=== PATIENT | female | born 1950 | race Caucasian/White ===

== ENCOUNTER 2021-12-05 14:00 | Outpatient (RCR) | payer MEDICAID, SELFPAY | END 2022-02-27 15:01 | disposition home or self-care (01) | PROVIDERS: PCP Family Medicine; Visit Provider Family Medicine | DX: M54.2 Cervicalgia (principal); Z51.89 Encounter for other specified aftercare | CPT/HCPCS: 97110; 97140; 97161 ==

== ENCOUNTER 2022-01-28 10:10 | Outpatient (CLI) | payer MEDICAID, SELFPAY | END 2022-01-28 10:11 | disposition home or self-care (01) | LOC: LKVREF 02-02 10:35 | PROVIDERS: PCP Family Medicine; Visit Provider Physician Assistant Medical | DX: N39.0 Urinary tract infection, site not specified (principal); R31.9 Hematuria, unspecified | CPT/HCPCS: 87086 ==

== ENCOUNTER 2022-05-03 11:37 | Day surgery (SDC) | payer MEDICAID, SELFPAY ==
[2022-05-03] VITALS (10 sets, daily range): BP systolic 109–157; BP diastolic 71–88; PULSE 60–92; RESP 16; TEMP 36.2–36.7; O2SAT 99–100; BMI 25.1
[2022-05-03] MEDS: LACTATED RINGERS 1000 ML 1,000 ML 100 ML IV (12:00)
--- NOTE | 2022-05-03 12:09 | W.ANESCHARGE ---
Anesthesia Charges Start Date/Time Anesthesia Start Date: 05/03/22 Anesthesia Start Time: 13:25 Stop Date/Time Anesthesia Stop Date: 05/03/22 Anesthesia Stop Time: 14:24 Summary Emergency: No Extremes of Age: Over 68-CPT [id number]
[2022-05-03] MEDS: SODIUM CHLORIDE 0.9 % (FLUSH) 10 ML SYRINGE IVF (12:22)
[2022-05-03] MEDS: CEFAZOLIN 2 GM INJ IVP (13:35)
[2022-05-03] MEDS: BUPIVACAINE 0.25% 30 ML INJECTION (14:15)
--- NOTE | 2022-05-03 14:22 | W.ANESCHARGE ---
Anesthesia Charges Start Date/Time Anesthesia Start Date: 05/03/22 Anesthesia Start Time: 13:25 Stop Date/Time Anesthesia Stop Date: 05/03/22 Anesthesia Stop Time: 14:24 Summary Emergency: No Extremes of Age: Over 68-CPT [id number]
--- NOTE | 2022-05-03 14:23 | P.ORPRC_ITS ---
Procedure Note Date of procedure: 05/03/22 Procedure: SURGEON: Mik Veronica MD [employer] REPRESENTATIVE: MARSHA Rock PREOPERATIVE DIAGNOSIS: Left knee medial and lateral meniscus tear POSTOPERATIVE DIAGNOSIS: Left knee medial and lateral meniscus tear NAME OF OPERATION: Left knee arthroscopic partial medial and lateral meniscectomy, medial and lateral compartment chondroplasty ANESTHESIA: Spinal ESTIMATED BLOOD LOSS: 0 mL COMPLICATIONS: None SPECIMENS: None DRAINS: None PREOPERATIVE ANTIBIOTICS: Ancef 2 gram INDICATIONS: The patient is a 71-year-old with a history of left knee pain. MRI scan is consistent with tearing of the medial and lateral menisci. Despite appropriate nonoperative management, including activity modification, antiinflammatories, [id number] pain medication, bracing, physical therapy, and injections they continue to have pain and disability. Operative interve ntion was offered. The risks, benefits and expected outcomes were discussed in detail. These included but were not limited to: Infection, bleeding, injury to blood vessel or nerve, venous thromboembolism. All questions were answered to their satisfaction. PROCEDURE: Spinal anesthesia was administered. The patient was placed supine on the operating room table. The left lower extremity was prepped and draped in the usual sterile fashion. The limb was exsanguinated with the Mariano bandage. The pneumatic tourniquet was inflated to 300 mmHg. A standard anterolateral portal was established. The arthroscope was introduced. The working portal was established anteromedially. Diagnostic arthroscopy was performed with findings as follows: The suprapatellar pouch is normal. Articular surface on the patella is normal. Articular surface on the trochlea is normal. The medial gutter is normal. The medial compartment shows diffuse grade 3 change on the medial femoral condyle, grade 2 change on the medial tibial plateau. The medial meniscus has a complex degenerative tear of the posterior horn, into the midbody. This consists of a small radial tear with an unstable flap, tucked under midbody. The notch shows the ACL to be intact. The lateral compartment shows diffuse grade 3 change on the lateral femoral condyle, grade 2 change on the lateral tibial plateau. The lateral meniscus has a radial tear of the posterior horn from the leading edge, to the capsule, detaching it from the tibia (root tear). There is degenerative tearing of the leading edge of the midbody and anterior horn as well. The lateral gutter is normal. The posterior horn and midbody of the medial meniscus was debrided to a stable base using a combination of baskets and shaver through both portals. Likewise, the anterior horn, midbody and posterior horn of the lateral meniscus were debrided with a combination of baskets and Kassidy through both portals. Given the amount of arthritis, we elected not to repair the root tear. Unstable chondral flaps on the medial and lateral femoral condyle were debrided with the shaver through both portals, taken to a stable base. Arthroscopic instruments were removed, the portal sites were Steri-Stripped closed, the knee was infiltrated with 30 mL of 0.25% Marcaine without epinephrine. A dry dressing was applied, the tourniquet was released. Sponge an d needle counts were correct x 2. The patient tolerated the procedure well. There were no apparent complications. They were carefully transferred to the hospital bed and taken to the postanesthesia care unit in satisfactory condition. PLAN: The patient will be discharged to home. They may weightbear as tolerates. Range of motion will be unrestricted. They will follow up in the office next week for a wound check.
== END 2022-05-03 15:57 | disposition home or self-care (01) ==
LOC: OR 11:38
PROVIDERS: PCP Family Medicine; Visit Provider Orthopaedic Surgery
PROC: (CPT 29870; principal; 2022-05-03 13:00)
DX: M23.222 Derangement of posterior horn of medial meniscus due to old tear or injury, left knee (principal); M23.252 Derangement of posterior horn of lateral meniscus due to old tear or injury, left knee; M23.242 Derangement of anterior horn of lateral meniscus due to old tear or injury, left knee
CPT/HCPCS: 29880; 01400; 99100; J0690; J1100; J2250; J2400; J2405; J2704; J3010; J3490; J7120

== ENCOUNTER 2023-02-08 12:35 | Outpatient (CLI) | payer MEDICAID, SELFPAY ==
[2023-02-08 12:51] LABS: WBC Urine 50-100 (0-5)
[2023-02-08 12:52] LABS: Bacteria Urine Many; Squamous Epithelial Cell Urine Few (None-Few); WBC Clumps Urine Few
== END 2023-02-08 12:36 | disposition home or self-care (01) ==
LOC: NFLDUCREF 12:36
PROVIDERS: PCP Family Medicine; Visit Provider Physician Assistant
DX: R30.0 Dysuria (principal)
CPT/HCPCS: 81015; 87086; 87186

== ENCOUNTER 2023-05-16 12:42 | Outpatient (CLI) | payer MEDICARE, SELFPAY | END 2023-05-16 12:43 | disposition home or self-care (01) | LOC: NFLDREF 05-17 11:13 | PROVIDERS: PCP Family Medicine; Referring Provider Family Medicine; Visit Provider Registered Nurse | DX: R30.0 Dysuria (principal); N39.0 Urinary tract infection, site not specified | CPT/HCPCS: 87086 ==

== ENCOUNTER 2023-07-29 06:16 | Day surgery (SDC) | payer MEDICARE, SELFPAY ==
[2023-07-29] VITALS (16 sets, daily range): BP systolic 138–181; BP diastolic 75–103; PULSE 58–80; RESP 16–20; TEMP 36.1–36.9; O2SAT 96–100; BMI 23.8
[2023-07-29] MEDS: SODIUM CHLORIDE 0.9 % (FLUSH) 10 ML SYRINGE IVF (06:45)
[2023-07-29] MEDS: LACTATED RINGERS 1000 ML 1,000 ML 100 ML IV (06:45)
--- NOTE | 2023-07-29 07:17 | W.PM.H&PU ---
History & Physical Update History & Physical Update H&P Reviewed and patient assessed: No changes noted
--- NOTE | 2023-07-29 07:19 | P.GSOP_ITS ---
Operative Note Date of procedure: 07/29/23 Pre-op diagnosis: 1. Symptomatic right inguinal hernia. Post-op diagnosis: 1. Direct right inguinal hernia. Type of Procedure: 1. Open right inguinal hernia repair with mesh. Indications: 72-year-old female was seen in clinic for evaluation of an enlarging right inguinal hernia. Patient had exploratory laparotomy in 2021 for perforated duodenal ulcer. During her workup with abdominal CT a right inguinal hernia containing terminal ileum was seen. There was no evidence of obstruction. Ginger ent noticed a right inguinal bulge in the last couple years. This was more prominent when she was standing and with coughing and sneezing. Patient denied pain at the bulge. On clinical exam patient had a well-healed upper midline laparotomy incision. When the patient was lying down there was asymmetry of soft tissue in the right inguinal canal. This was more prominent with Valsalva and when patient was standing up and doing Valsalva. A right inguinal bulge was palpable. Given patient's clinical history and her physical exam, an open right inguinal hernia repair with mesh was recommended. The procedure was discussed in detail. Risks associated procedure including infection, bleeding, nerve pain, nerve injury, injury to intra-abdominal organs, and hernia recurrence were all discussed with the patient, and she agreed to proceed. Procedure Description: After discussing the risks and benefits of the procedure, the patient signed informed consent.? The operative site was marked and the patient was brought to the operating room and placed on the operating table in supine position.? Care was taken to pad the patient's pressure points.?? The patient was then intubated by anesthesia.?? The operative site was then prepped and draped in the usual sterile fashion.? A time-out was then performed. Surgical site was prepped and draped in sterile fashion. Site of the incision was marked with a marking pen and local anesthetic was injected. An oblique incision was made just above and medial to the right inguinal ligament. Subcutaneous tissue was dissected to external obliques. Superficial subcutaneous vascular branches were clamped, divided and tied with 3-0 Vicryl ties. Small incision was made through the external oblique aponeurosis with scalpel. I then used Metzenbaum scissors to dissect under external obliques and extend my incision. Mosquito clamps were placed on the edges of external oblique exposing the inguinal floor. The right Ilioinguinal nerve was identified and was going through the plain of dissection. The nerve was divided proximally and distally and a 3 cm segment of it was excised. This was not sent to pathology. I then identified the round ligament and the direct hernia sac. Peritoneum at the internal ring was examined and there was no evidence of indirect inguinal hernia. The round ligament and the direct hernia sac were dissected away from each other with cautery and bluntly. The round ligament was then clamped proximally and distally and a segment of round ligament was excised and not sent to pathology. The distal and proximal ends were tied with Vicryl ties. The direct hernia sac was incised with Metzenbaum scissors and examined from the inside. I could see small intestine at the base of the hernia sac but no intraabdominal organs were incarcerated in the hernia sac. A stitch using 2-0 Vicryl was placed near the base of the hernia sac through the sac and the hernia sac tied off. Hernia sac was then excised and not sent to pathology. The cut edge of the hernia sac was then oversewn with a locking Vicryl suture. This was then pushed into preperitoneal space. Surgical field was examined for bleeding and hemostasis was achieved with cautery. Muscle fibers of the inguinal floor were reapproximated with interrupted Vicryl sutures to keep the hernia sac in the preperitoneal space. A Bard mesh onlay was also used for hernia repair. The mesh onlay was sutured in place with interrupted 0-0 Neurolon sutures to the conjoint tendon medially and shelving edge laterally, pubic tubercle inferiorly. External oblique aponeurosis was closed with a running 3-0 Vicryl. Additional local anesthetic was injected into subcutaneous tissues. Callum's fascia and subcutaneous tissue was re- approximated with interrupted Vicryl stitches. Skin incision was closed with 4-0 Monocryl subcuticular stitch. Steri strips and sterile dressing were applied over incision. All counts were correct at the end of the case. Patient tolerated this procedure well and was transferred to PACU in stable condition. Findings: Small direct hernia with no intra-abdominal structures incarcerated in the hernia sac. Repaired with mesh. Anesthesia: GETA Surgeon: Susana Bui MD Estimated blood loss (mL): 5 Condition: stable Disposition: PACU
[2023-07-29] MEDS: CEFAZOLIN 2 GM INJ IVP (07:32)
[2023-07-29] MEDS: BUPIVACAINE 0.25% 30 ML INJECTION (08:10)
--- NOTE | 2023-07-29 08:34 | W.ANESCHARGE ---
Anesthesia Charges Start Date/Time Anesthesia Start Date: 07/29/23 Anesthesia Start Time: 07:20 Stop Date/Time Anesthesia Stop Date: 07/29/23 Anesthesia Stop Time: 08:34
[2023-07-29] MEDS: HYDROCODONE-ACETAMIN 5-325 MG 1 TAB PO (09:48)
== END 2023-07-29 10:20 | disposition home or self-care (01) ==
PROVIDERS: PCP Family Medicine; Visit Provider Surgery
PROC: (CPT 49505; principal; 2023-07-29 07:30)
DX: K40.90 Unilateral inguinal hernia, without obstruction or gangrene, not specified as recurrent (principal)
CPT/HCPCS: 49505; 00830; A9270; C1781; J0330; J0665; J0690; J1100; J2405; J2704; J3010; J7120

== ENCOUNTER 2024-01-20 10:38 | Emergency (ER) | payer MEDICARE, SELFPAY ==
[2024-01-20 10:43] VITALS: BP 150/80; PULSE 87; RESP 18; TEMP 36.3; O2SAT 100; BMI 25.0
--- NOTE | 2024-01-20 11:09 | ED.PSYCH ---
HPI - Psych General Time Seen by Provider: 11:09 <Licha Perales MD - Last Filed: 01/21/24 14:25> Date Seen: 01/20/24 <Licha Perales MD - Last Filed: 01/21/24 14:25> Chief Complaint: Psychiatric Problem/Disorder <Licha Perales MD - Last Filed: 01/21/24 14:25> Stated Complaint: anxiety/depression <Licha Perales MD - Last Filed: 01/21/24 14:25> Time Seen by Provider: 01/20/24 11:09 <Licha Perales MD - Last Filed: 01/21/24 14:25> Source: patient and RN notes reviewed <Licha Perales MD - Last Filed: 01/21/24 14:25> Mode of arrival: ambulatory <Licha Perales MD - Last Filed: 01/21/24 14:25> Limitations: no limitations <Licha Perales MD - Last Filed: 01/21/24 14:25> History of Present Illness HPI Narrative: Carmen is a very pleasant 73-year-old female with history of gastric bypass, frequent UTI who comes to the emergency room today with her and daughter for suicidal ideation and plan. Carmen states that for 3 years she has had increased anxiety ever since the neighbor came over to visit her while she was away. She notes that she had been vacationing on [place] with her family and when she returned home she wanted to tell her about her experiences but all he wanted to do was tell her about how nice the neighbor was. It appears that the neighbor brought over a meal and that they shared it and since that time she feels like her is watching the neighbor when she walks her dog or walks by. She notes that her had an affair 35 years ago and that although he is a good father friend and grandpa he is not a good . Carmen according to her daughter has had lifelong anxiety and 15 years ago quit taking anti anxiety medication. She does not know what that medication was. She notes that the entire family is very anxious and that she herself also takes medication. Carmen was very upset as last night she saw a text message between her daughter and her son stating why does not mom just get on meds. Carmen's daughter feels that her mom needs medication and help. Carmen notes that she does not sleep well. She takes melatonin 5 mg before bedtime. However, every time she wakes up during the night, she takes an additional dose. She notes that last night she ended up taking 20 mg in total where she normally takes 15mg. She also states that she has been drinking more in the evenings over the last 3 years. No history of seizures. No history of addiction. It does appear that she snores at night, has never had a sleep study. Last evening her thought was that she would take some pills. I do ask her if her intent was to kill herself and she agrees yes it was. She does not want to continue to live like this. She denies visual or auditory hallucinations but states every time she closes her eyes she can see her with the neighbor. She denies a past history of suicide attempts but does admit to anxiety and depression. Patient denies any unusual weight loss, states that her labs of following gastric bypass had been normal every year, and denies any recent fevers. She does note urinary tract symptoms yesterday with some nausea low back pain and pain with urination but this happens frequently. She took azo at home and has no symptoms today. Is very active and denies any movement disorders. I am able to talk to Carmen's daughter Lulu. She confirms the marital a fair 35 years ago. She notes that her parents have recently been in a tiff. She states that it is very uncomfortable to try to deal with this. She really would like her mother to receive some help. Carmen's is present and appears concerned and states that he wants to see his happy. <Licha Perales MD - Last Filed: 01/21/24 14:25> Related Data Home Medications: Home Medications ?Medication ?Instructions ?Recorded ?Confirmed amlodipine 5 mg tablet 5 mg PO DAILY 01/28/22 01/20/24 calcium acetate-magnesium carb 450 1 tab PO BID 05/02/22 01/20/24 mg-200 mg tablet cyanocobalamin (vitamin B-12) 1,000 mcg PO DAILY 05/02/22 01/20/24 1,000 mcg tablet multivitamin 1 tab PO DAILY 05/02/22 01/20/24 melatonin 5 mg-pyridoxine (vitamin 1 tab PO HS PRN 01/20/24 01/20/24 B6) 1 mg tablet (Melatonin (with B6)) Previous Rx's ?Medication ?Instructions ?Recorded lorazepam 0.5 mg tablet (Ativan) 0.5 mg PO BID PRN #15 tabs 01/20/24 paroxetine HCl 10 mg tablet (Paxil) 10 mg PO DAILY #30 tabs 01/20/24 <Licha Perales MD - Last Filed: 01/21/24 14:25> Allergies/Adverse Reactions: Allergies Allergy/AdvReac Type Severity Reaction Status Date / Time sulfamethoxazole Allergy Severe Verified 01/20/24 10:56 [From Bactrim] trimethoprim [From Bactrim] Allergy Severe Verified 01/20/24 10:56 <Licha Perales MD - Last Filed: 01/21/24 14:25> Review of Systems Status of ROS: Reports: 6 or more systems reviewed and unremarkable except as noted in History and below <Licha Perales MD - Last Filed: 01/21/24 14:25> [facility] Medical History: Medical History Duodenal bulb ulcer perforation ?K26.5 - Chronic or unspecified duodenal ulcer with perforation (ICD-10) Hypertension ?I10 - Essential (primary) hypertension (ICD-10) Osteoporosis ?M81.0 - Age-related osteoporosis without current pathological fracture (ICD-10) Varicosities of leg ?I83.90 - Asymptomatic varicose veins of unspecified lower extremity (ICD-10) Phlebitis ?I80.9 - Phlebitis and thrombophlebitis of unspecified site (ICD-10) Major depressive disorder, recurrent episode, unspecified ?F33.9 - Major depressive disorder, recurrent, unspecified (ICD-10) DVT (deep venous thrombosis) ?I82.409 - Acute embolism and thrombosis of unspecified deep veins of unspecified lower extremity (ICD-10) UTI (urinary tract infection) ?N39.0 - Urinary tract infection, site not specified (ICD-10) <Licha Perales MD - Last Filed: 01/21/24 14:25> Surgical History: Surgical History History of meniscectomy of left knee (05/03/22) ?Z98.890 - Other specified postprocedural states (ICD-10) Hx of radiofrequency ablation for complex left atrial arrhythmia ?Z98.890 - Other specified postprocedural states (ICD-10) ?Z86.79 - Personal history of other diseases of the circulatory system (ICD-10) Hx of tubal ligation ?Z98.51 - Tubal ligation status (ICD-10) Hx of hysterectomy ?Z90.710 - Acquired absence of both cervix and uterus (ICD-10) Hx of gastric bypass ?Z98.84 - Bariatric surgery status (ICD-10) Status post exploratory laparotomy ?Z98.890 - Other specified postprocedural states (ICD-10) Duodenal ulcer with perforation (09/2021) ?K26.5 - Chronic or unspecified duodenal ulcer with perforation (ICD-10) <Licha Perales MD - Last Filed: 01/21/24 14:25> Social History: Social History Smoking Status: Never smoker Do you use any of these nicotine containing products: None How often do you have a drink containing alcohol: 2-3 times a week Alcohol type: wine How many standard drinks containing alcohol do you have on a typical day: 1 or 2 How often do you have six or more drinks on one occasion: Never AUDIT-C Alcohol total score: 3 Non-prescribed substance use: denies use Caffeine: Yes (2 cups of coffee) Are you using contraception or practicing any form of control: No <Licha Perales MD - Last Filed: 01/21/24 14:25> Exam Narrative: Exam Narrative: Alert and oriented. No acute distress initially. Then begins to cry. Frequently looks at her when she is talking about him. EOM is full. Head is atraumatic normocephalic. Neck is supple without lymphadenopathy. Heart with regular rate and rhythm and lungs are clear bilaterally. Abdomen is soft. Moving all extremities. No external signs of trauma. <Licha Perales MD - Last Filed: 01/21/24 14:25> Const: Vital Signs, click to edit/add: Vital Signs - 24 hr 01/20/24 18:26 Temperature 97.2 F L Pulse Rate [Pulse Oximeter] 78 Respiratory Rate 18 Blood Pressure [Ri ght Upper Arm] 133/83 Pulse Oximetry 100 Oxygen Delivery Me thod Room Air <Licha Perales MD - Last Filed: 01/21/24 14:25> Vital Signs, click to edit/add: Vital Signs - 24 hr 01/20/24 18:26 Temperature 97.2 F L Pulse Rate [Pulse Oximeter] 78 Respiratory Rate 18 Blood Pressure [Ri ght Upper Arm] 133/83 Pulse Oximetry 100 Oxygen Delivery Me thod Room Air <Logan Markham MD - Last Filed: 01/20/24 18:26> Documenting provider has reviewed patient's vital signs: yes <Licha Perales MD - Last Filed: 01/21/24 14:25> Course Course ED Course: At this time patient is presenting with suicidal ideation, plan but has not carry did out. I did confirm that the extramarital affair 35 years ago was real. Daughter is unsure if current neighbor lady is an issue. At this time will check TSH, magnesium, B12, CBC, acetaminophen, salicylate, ETOH, comprehensive panel. Will also ask socially responsible investment adviser to help us with mental health assessment. <Licha Perales MD - Last Filed: 01/21/24 14:25> Reevaluation(s) Reevaluation #1: Following ativan administration for needle phobia, patient is sleeping. Web Developer Programmer is assisting in assessment. <Licha Perales MD - Last Filed: 01/21/24 14:25> Vital Signs Vital signs: Initial Vital Signs Temperature 97.4 F L 01/20/24 10:43 Temperature Source Temporal Artery Scan 01/20/24 10:43 Pulse Rate 87 01/20/24 10:43 Respiratory Rate 18 01/20/24 10:43 Blood Pressure 150/80 H 01/20/24 10:43 Blood Pressure Mean 103 01/20/24 10:43 Blood Pressure Position Sitting 01/20/24 10:43 Pulse Oximetry 100 01/20/24 10:43 Oxygen Delivery Method Room Air 01/20/24 10:43 Vital Signs Temperature 97.4 F L 01/20/24 10:43 Pulse Rate 87 01/20/24 10:43 Respiratory Rate 18 01/20/24 10:43 Blood Pressure 150/80 H 01/20/24 10:43 Pulse Oximetry 100 01/20/24 10:43 Oxygen Delivery Method Room Air 01/20/24 10:43 Temperature 97.2 F L 01/20/24 18:26 Pulse Rate 78 01/20/24 18:26 Respiratory Rate 18 01/20/24 18:26 Blood Pressure 133/83 01/20/24 18:26 Pulse Oximetry 100 01/20/24 18:26 Oxygen Delivery Method Room Air 01/20/24 18:26 <Licha Perales MD - Last Filed: 01/21/24 14:25> Initial Vital Signs Temperature 97.4 F L 01/20/24 10:43 Temperature Source Temporal Artery Scan 01/20/24 10:43 Pulse Rate 87 01/20/24 10:43 Respiratory Rate 18 01/20/24 10:43 Blood Pressure 150/80 H 01/20/24 10:43 Blood Pressure Mean 103 01/20/24 10:43 Blood Pressure Position Sitting 01/20/24 10:43 Pulse Oximetry 100 01/20/24 10:43 Oxygen Delivery Method Room Air 01/20/24 10:43 Vital Signs Temperature 97.4 F L 01/20/24 10:43 Pulse Rate 87 01/20/24 10:43 Respiratory Rate 18 01/20/24 10:43 Blood Pressure 150/80 H 01/20/24 10:43 Pulse Oximetry 100 01/20/24 10:43 Oxygen Delivery Method Room Air 01/20/24 10:43 Temperature 97.2 F L 01/20/24 18:26 Pulse Rate 78 01/20/24 18:26 Respiratory Rate 18 01/20/24 18:26 Blood Pressure 133/83 01/20/24 18:26 Pulse Oximetry 100 01/20/24 18:26 Oxygen Delivery Method Room Air 01/20/24 18:26 <Logan Markham MD - Last Filed: 01/20/24 18:26> Medications Administered Medications: Discontinued Medications Generic Name Dose Route Start Last Admin Trade Name Freq PRN Reason Stop Dose Admin Lorazepam 1 mg 01/20/24 11:52 01/20/24 12:07 Lorazepam 1 Mg Tablet PO 01/20/24 11:53 1 mg ONCE ONE Administration <Licha Perales MD - Last Filed: 01/21/24 14:25> Discontinued Medications Generic Name Dose Route Start Last Admin Trade Name Nadia TREVIZO Reason Stop Dose Admin Lorazepam 1 mg 01/20/24 11:52 01/20/24 12:07 Lorazepam 1 Mg Tablet PO 01/20/24 11:53 1 mg ONCE ONE Administration <Logan Markham MD - Last Filed: 01/20/24 18:26> MDM - Psych MDM Narrative Medical decision making narrative: 1. Suicidal ideation-there is appearance of a fixation on 's infidelity. Not entirely sure if underlying anxiety depression is not actually a huge part of this as well as sleep deprivation. Currently waiting on social media content manager evaluation 2. Needle a version-patient is given Ativan 1 mg prior to to blood draw as 1st blood draw was not successful. 3. Disposition-this case is signed out to my colleague Dr. Markham I visited a couple times with this patient and she and her repeatedly state that she is doing much better after receiving Ativan. She did get some rest as this also helped. Meanwhile a process was underway to evaluate and to arrange for inpatient evaluation and treatment. There were not many options available at all for her. There was a possibility for a transfer to [place] but after discussion with the patient and seeing her improvement this option was declined. She and her are both feeling safe to go home and understand that they can return if worsening symptoms occur. I did provide prescriptions for Paxil and some tablets of Ativan. She understands that Ativan is not a long-term plan but can help bridge her anxiety symptoms until Paxil takes affect hopefully. I stressed the importance of a follow-up visit with her primary physician for ongoing management. <Licha Perales MD - Last Filed: 01/21/24 14:25> 1. Suicidal ideation-there is appearance of a fixation on 's infidelity. Not entirely sure if underlying anxiety depression is not actually a huge part of this. Currently waiting on social media content manager evaluation 2. Needle a version-patient is given Ativan 1 mg prior to to blood draw as 1st blood draw was not successful. 3. Disposition-this case is signed out to my colleague Dr. Markham I visited a couple times with this patient and she and her repeatedly state that she is doing much better after receiving Ativan. She did get some rest as this also helped. Meanwhile a process was underway to evaluate and to arrange for inpatient evaluation and treatment. There were not many options available at all for her. There was a possibility for a transfer to [place] but after discussion with the patient and seeing her improvement this option was declined. She and her are both feeling safe to go home and understand that they can return if worsening symptoms occur. I did provide prescriptions for Paxil and some tablets of Ativan. She understands that Ativan is not a long-term plan but can help bridge her anxiety symptoms until Paxil takes affect hopefully. I stressed the importance of a follow-up visit with her primary physician for ongoing management. <Logan Markham MD - Last Filed: 01/20/24 18:26> Medical Records Attestation: I reviewed the patient's medical records. <Licha Perales MD - Last Filed: 01/21/24 14:25> Lab Data Attestation: I reviewed the patient's lab results. <Licha Perales MD - Last Filed: 01/21/24 14:25> Labs: Lab Results 01/20/24 01/20/24 Range/Units 12:23 12:50 WBC 6.31 (4.50-11.00) K/uL RBC 4.34 (4.00-5.20) m/uL Hgb 13.4 (12.0-16.0) gm/dL Hct 39.7 (33.0-51.0) % MCV 92 (80-100) fL MCH 31 (26-34) pg MCHC 34 (32-36) gm/dL RDW Coeff of Kadi 12.8 (11.5-15.5) % Plt Count 230 (140-440) K/uL Neut % (Auto) 72.0 (42.0-72.0) % Lymph % (Auto) 17.6 L (20-44) % Anson % (Auto) 8.9 (0.0-11.0) % Eos % (Auto) 1.0 (0.0-7.0) % Baso % (Auto) 0.3 (0.0-3.0) % Neut # (Auto) 4.55 (1.7-7.0) K/uL Lymph # (Auto) 1.10 (0.90-2.90) K/uL Anson # (Auto) 0.60 (0.00-0.90) K/UL Eos # (Auto) 0.06 (0.00-0.50) K/uL Baso # (Auto) 0.02 (0.00-0.30) K/uL Abs Immat Gran (auto) 0.01 (0.00-0.30) K/uL Imm/Tot Granulo (auto) 0.2 % Sodium 131 L (135-149) mmol/L Potassium 3.4 L (3.6-5.1) mmol/L Chloride 101 (96-114) mmol/L Carbon Dioxide 20 (20-32) mmol/L Anion Gap 10 (7-15) mEq/L BUN 13 (7-30) mg/dL Creatinine 0.9 (0.5-1.5) mg/dL Estimated Creat Clear 43.74 Estimated GFR 67 ml/min Glucose 98 (60-115) mg/dL Calcium 9.6 (8.4-10.6) mg/dL Magnesium 2.0 (1.5-2.6) mg/dL Total Bilirubin 1.1 (0.1-1.5) mg/dL AST 31 (12-35) U/L ALT 17 (4-35) U/L Alkaline Phosphatase 102 (40-150) U/L Total Protein 7.3 (6.0-8.3) g/dL Albumin 4.7 (3.3-5.0) g/dL Vitamin B12 > 1000 H (243-894) pg/mL 25-OH Vitamin D Total 38 (30-80) ng/mL Urine Color Yellow (Yellow) Urine Appearance Clear (Clear) Urine pH 7.5 (5.0-8.5) Ur Specific Orange 1.015 (1.000-1.030) Urine Protein Negative (Negative) Urine Glucose (UA) Negative (Negative) Urine Ketones Negative (Negative) Urine Blood Trace-intact A (Negative) Urine Nitrite Negative (Negative) Urine Bilirubin Negative (Negative) Urine Urobilinogen 0.2 (0.2-1.0) Ur Leukocyte Esterase Negative (Negative) Urine RBC 0-2 (0-2) Urine WBC 0-2 (0-5) Ur Squamous Epith Cells Moderate A (None-Few) Urine Bacteria Many A (None) Salicylates < 1.0 L (1.0-10) mg/dL Acetaminophen < 10.0 L (10.0-30.0) ug/mL Ethyl Alcohol < 0.01 L (0.01-0.03) % <Licha Perales MD - Last Filed: 01/21/24 14:25> Lab Results 01/20/24 01/20/24 Range/Units 12:23 12:50 WBC 6.31 (4.50-11.00) K/uL RBC 4.34 (4.00-5.20) m/uL Hgb 13.4 (12.0-16.0) gm/dL Hct 39.7 (33.0-51.0) % MCV 92 (80-100) fL MCH 31 (26-34) pg MCHC 34 (32-36) gm/dL RDW Coeff of Kadi 12.8 (11.5-15.5) % Plt Count 230 (140-440) K/uL Neut % (Auto) 72.0 (42.0-72.0) % Lymph % (Auto) 17.6 L (20-44) % Anson % (Auto) 8.9 (0.0-11.0) % Eos % (Auto) 1.0 (0.0-7.0) % Baso % (Auto) 0.3 (0.0-3.0) % Neut # (Auto) 4.55 (1.7-7.0) K/uL Lymph # (Auto) 1.10 (0.90-2.90) K/uL Anson # (Auto) 0.60 (0.00-0.90) K/UL Eos # (Auto) 0.06 (0.00-0.50) K/uL Baso # (Auto) 0.02 (0.00-0.30) K/uL Abs Immat Gran (auto) 0.01 (0.00-0.30) K/uL Imm/Tot Granulo (auto) 0.2 % Sodium 131 L (135-149) mmol/L Potassium 3.4 L (3.6-5.1) mmol/L Chloride 101 (96-114) mmol/L Carbon Dioxide 20 (20-32) mmol/L Anion Gap 10 (7-15) mEq/L BUN 13 (7-30) mg/dL Creatinine 0.9 (0.5-1.5) mg/dL Estimated Creat Clear 43.74 Estimated GFR 67 ml/min Glucose 98 (60-115) mg/dL Calcium 9.6 (8.4-10.6) mg/dL Magnesium 2.0 (1.5-2.6) mg/dL Total Bilirubin 1.1 (0.1-1.5) mg/dL AST 31 (12-35) U/L ALT 17 (4-35) U/L Alkaline Phosphatase 102 (40-150) U/L Total Protein 7.3 (6.0-8.3) g/dL Albumin 4.7 (3.3-5.0) g/dL Vitamin B12 > 1000 H (243-894) pg/mL 25-OH Vitamin D Total 38 (30-80) ng/mL Urine Color Yellow (Yellow) Urine Appearance Clear (Clear) Urine pH 7.5 (5.0-8.5) Ur Specific Orange 1.015 (1.000-1.030) Urine Protein Negative (Negative) Urine Glucose (UA) Negative (Negative) Urine Ketones Negative (Negative) Urine Blood Trace-intact A (Negative) Urine Nitrite Negative (Negative) Urine Bilirubin Negative (Negative) Urine Urobilinogen 0.2 (0.2-1.0) Ur Leukocyte Esterase Negative (Negative) Urine RBC 0-2 (0-2) Urine WBC 0-2 (0-5) Ur Squamous Epith Cells Moderate A (None-Few) Urine Bacteria Many A (None) Salicylates < 1.0 L (1.0-10) mg/dL Acetaminophen < 10.0 L (10.0-30.0) ug/mL Ethyl Alcohol < 0.01 L (0.01-0.03) % <Logan Markham MD - Last Filed: 01/20/24 18:26> Discharge Plan Discharge Clinical Impression: Anxiety and depression, Insomnia <Licha Perales MD - Last Filed: 01/21/24 14:25> Patient Disposition: Home w/ Parent or Adult <Licha Perales MD - Last Filed: 01/21/24 14:25> Condition: Improved <Licha Perales MD - Last Filed: 01/21/24 14:25> Additional Instructions: Take medications as prescribed. Follow up with primary physician in 2-3 weeks for ongoing management. Return if worsening. <Licha Perales MD - Last Filed: 01/21/24 14:25> Prescriptions: New lorazepam [Ativan] 0.5 mg tablet 0.5 mg PO BID PRNQty: 15 0RF paroxetine HCl [Paxil] 10 mg tablet 10 mg PO DAILY Qty: 30 2RF No Action amlodipine 5 mg tablet 5 mg PO DAILY Patient Comments: TAKE ONE TABLET BY MOUTH ONE TIME DAILY calcium acetate-magnesium carb 450-200 mg tablet 1 tab PO BID cyanocobalamin (vitamin B-12) 1,000 mcg tablet 1,000 mcg PO DAILY multivitamin Tablet 1 tab PO DAILY melatonin-pyridoxine (vit B6) [Melatonin (with B6)] 5-1 mg tablet 1 tab PO HS PRN <Licha Perales MD - Last Filed: 01/21/24 14:25> Follow Up/Referrals: Mariama Conrad DO [Primary Care Provider] - <Licha Perales MD - Last Filed: 01/21/24 14:25> Stand Alone Forms: [employer] Info Instructions <Licha Perales MD - Last Filed: 01/21/24 14:25>
[2024-01-20] MEDS: LORazepam 1 MG TABLET PO (12:07)
[2024-01-20 12:31] LABS: Appearance Urine Clear (Clear); Bilirubin Urine Negative (Negative); Blood Urine Trace-intact (Negative); Color Urine Yellow (Yellow); Glucose Urine Negative (Negative); Ketones Urine Negative (Negative); Leukocyte Esterase Urine Negative (Negative); Nitrite Urine Negative (Negative); Protein Urine Negative (Negative); Specific Gravity Urine 1.015 (1.000-1.030); Urobilinogen Urine 0.2 (0.2-1.0); pH Urine 7.5 (5.0-8.5)
[2024-01-20 12:40] LABS: Bacteria Urine Many; RBC Urine 0-2 (0-2); Squamous Epithelial Cell Urine Moderate (None-Few); WBC Urine 0-2 (0-5)
[2024-01-20 13:06] LABS: Basophils Absolute Auto 0.02 K/uL (0.00-0.30); Basophils Percent Auto 0.3 % (0.0-3.0); Eosinophils Absolute Auto 0.06 K/uL (0.00-0.50); Hematocrit 39.7 % (33.0-51.0); Hemoglobin* 13.4 gm/dL (12.0-16.0); Immature Granulocytes Abs Auto 0.01 K/uL (0.00-0.30); Immature Granulocytes Pct Auto 0.2 %; Lymphocytes Percent Auto 17.6 % (20-44); Mean Corpuscular HGB Conc 34 gm/dL (32-36); Mean Corpuscular Hemoglobin 31 pg (26-34); Mean Corpuscular Volume 92 fL (80-100); Monocytes Percent Auto 8.9 % (0.0-11.0); Neutrophils Absolute Auto 4.55 K/uL (1.7-7.0); Platelet Count* 230 K/uL (140-440); RDW Coefficient of Variation % 12.8 % (11.5-15.5); Red Blood Count 4.34 m/uL (4.00-5.20); White Blood Count* 6.31 K/uL (4.50-11.00)
[2024-01-20 13:19] LABS: Chloride* 101 mmol/L (96-114)
[2024-01-20 13:20] LABS: Albumin* 4.7 g/dL (3.3-5.0); Potassium* 3.4 mmol/L (3.6-5.1); Sodium* 131 mmol/L (135-149)
[2024-01-20 13:22] LABS: Creatinine* 0.9 mg/dL (0.5-1.5); Est. Creatinine Clearance* 43.74; Estimated Glomerular Filt Rate 67 ml/min
[2024-01-20 13:23] LABS: Alkaline Phosphatase* 102 U/L (40-150); Anion Gap 10 mEq/L (7-15); Aspartate Amino Transferase* 31 U/L (12-35); Bilirubin Total* 1.1 mg/dL (0.1-1.5); Calcium* 9.6 mg/dL (8.4-10.6); Carbon Dioxide* 20 mmol/L (20-32); Glucose* 98 mg/dL (60-115); Total Protein* 7.3 g/dL (6.0-8.3)
[2024-01-20 13:25] LABS: Acetaminophen* < 10.0 ug/mL (10.0-30.0); Ethanol* < 0.01 % (0.01-0.03); Salicylate* < 1.0 mg/dL (1.0-10)
[2024-01-20 13:26] LABS: Slide Review Reflex No
[2024-01-20 13:45] VITALS: BP 134/78; PULSE 69; RESP 18; TEMP 36.2; O2SAT 99
[2024-01-20 14:24] LABS: Alanine Aminotransferase* 17 U/L (4-35); Blood Urea Nitrogen* 13 mg/dL (7-30); Vitamin B12* > 1000 pg/mL (243-894)
[2024-01-20 14:26] LABS: Vitamin D 25 Hydroxy* 38 ng/mL (30-80)
--- NOTE | 2024-01-20 14:47 | PC.SOCIAL ---
Addendum entered by KEARA Guo 01/20/24 17:03: sheet metal worker checked the [facility] bed availability online. Currently, the only available beds for a patient this age, are at the following facilities: 1. [facility] (phone for [facility] Intake [phone]) Faxed information [phone] and awaiting call back with decision on admit. 2. [facility] (phone for [facility] intake [phone]) Faxed information [phone] and awaiting call back with decision on admit. Addendum entered by CHAYA Leiva 01/20/24 16:28: Discharge planning: Call back numbers for facilities are listed below. 1. [facility] in [place] #[phone] [facility] #[phone] 3. [facility] in [place] #[phone] 4. [facility]) #[phone] Social work to follow-up as needed. Addendum entered by CHAYA Leiva 01/20/24 16:00: Discharge planning: sheet metal worker called [facility] in [place] and they do not have openings today ans stated to call back tomorrow(Saturday). sheet metal worker called [facility] in [place] and they stated to call back today(01/19) after 9pm to check on bed availability. Currently, they do not have a bed. sheet metal worker called [facility] and talked to a nurse named Marissa, they do not have any deo-psych beds and their adult beds are all full at [facility] in [place]; however, they have some adult beds open in [place] and asked for more detailed information on the pt. sheet metal worker asked her refractory products supervisor to call Marissa back. Social work to follow-up as needed. Addendum entered by CHAYA Leiva 01/20/24 15:31: Discharge planning: sheet metal worker heard back from [facility] and they do not have any openings right now, but may have some mid to later this week. Social work to follow-up as needed. Original Note: Discharge planning: sheet metal worker left a message with the hearing screen coordinator at [facility] to see if they would be willing to review the pt for possible placement. [email or web address] is currently stating that they have one bed opening. Social work to follow-up as needed.
[2024-01-20 18:26] VITALS: BP 133/83; PULSE 78; RESP 18; TEMP 36.2; O2SAT 100
== END 2024-01-20 18:25 | disposition home or self-care (01) ==
PROVIDERS: Emergency Provider Family Medicine; PCP Family Medicine
DX: R45.851 Suicidal ideations (principal); F32.A Depression, unspecified; F41.8 Other specified anxiety disorders; G47.00 Insomnia, unspecified
CPT/HCPCS: 36415; 80053; 80143; 80179; 81001; 82077; 82306; 82607; 83735; 85025; 87086; 87186; 99283; 99284; A9270